=== PATIENT | male | born 1960 | race Caucasian/White ===

== ENCOUNTER 2016-05-04 22:15 | Emergency (ER) | payer OTHER ==
[~2016-05-04] VITALS: Ht 167.6 cm; Wt 84.1 kg
[~2016-05-04 22:15] MED LIST: FEXO1TAB7 PO; METH2.5T PO; OMEP-113 PO
[2016-05-04 22:22] VITALS: BP 190/109; PULSE 86; RESP 17; O2SAT 97
--- NOTE | 2016-05-04 22:25 | ED.REPORT ---
HPI-Abd Pain M 40 and Over Date of Service May 04, 2016 ED Provider: John Khan DO Pt is a 55 y.o. male with a hx of colectomy secondary to ulcerative colitis who presents to the ED c/o abdominal pain onset 2 days ago. He reports associated hematuria, nausea, and vomiting. PT was seen by Dr. Alexis today and dx with renal stones, he was prescribe Flomax but has been unable to take it due to nausea. Pt states that he has been unable to experience relief with Oxycodone and that he would like help with pain management. He denies fever, chills, and diarrhea. Nursing Notes Stated Complaint: POSS KIDNEY STONES Chief Complaint: Male Abdominal Pain Nursing Notes Reviewed: Yes Allergies: Coded Allergies: morphine (Verified Allergy, Intermediate, HIVES, 05/04/16) hydromorphone (Verified Allergy, Unknown, 05/04/16) Uncoded Allergies: VIT C (Allergy, Mild, RASH, 04/16/13) Scheduled Methotrexate Sodium (Methotrexate) 2.5 Mg Tablet Unknown Dose PO vonda 6 TABLETS ONCE WEEKLY Omeprazole Magnesium (Omeprazole) 20 Mg Capsule.dr 20 MG PO BID Scheduled PRN Fexofenadine/Pseudoephedrine ER (Nadine-D 24 Hour) 1 Each Tab.er.24h 1 EACH PO DAILY PRN PRN ENV. ALLERGIES General Time Seen by MD: 22:25 Chief Complaint Abdominal pain Hx Obtained From: Patient Arrived By: Walk-in Sudden in Onset?: Yes Onset Occurred: 2 days ago Symptom Duration: Since onset Location: : Diffuse Quality: Painful Severity: Current: Severe Recent Healthcare: Recent doctor visit Past Medical History Past Medical History ulcerative colitis J pouch Exzema Past Surgical History Total colectomy for ulcerative colitis ileoscopy Nasal surgery Smoking History Never Smoker Social History Alcohol Use: Denies alcohol use Drug Use: Denies drug use Review of Systems Constitutional: Denies: Chills, Fever GI: Reports: Abdominal pain, Nausea, Vomiting, Denies: Diarrhea Male: Reports Hematuria Complete sys rev & neg: except as marked. Physical Exam Initial Vital Signs Vital Signs (First) Date Time Temp Pulse Resp B/P Pulse Ox O2 Delivery O2 Flow Rate FiO2 05/04/16 22:22 86 17 190/109 97 Room Air Initial VS: Reviewed Head / Eyes: Atraumatic, Normocephalic Extremities: Vascular intact, Neuro intact Skin: Warm, Dry, No cyanosis Neurologic: Alert, Oriented, Nonfocal Psychiatric: Mood/affect normal, Behavior normal, Normal thought content General/Constitutional: Awake, Alert, No acute distress, Well appearing, Well developed, Well hydrated, Well nourished, Not toxic appearing Respiratory / Chest: Atraumatic, Breath sounds NL, Breath sounds = bilat, No respiratory distress, No rales, No rhonchi, No wheezing, No retractions, No stridor Cardiovascular: Heart rate NL, Regular rhythm, Heart sounds NL, Peripheral circulation NL Abdomen: Atraumatic, Soft, Non-tender, No guarding, No rebound, No distention Back: Atraumatic, Inspection NL Interpretation & Diagnostics Lab Results Interpretation Result Diagram: 05/04/16223905/04/162239 Test 05/04/16 22:40 White Blood Count 7.9th/mm3 (3.8-10.1) Red Blood Count 5.31mil/mm3 (4.40-5.80) Hemoglobin 15.1g/dL (13.8-17.2) Hematocrit 45.3% (41.0-50.0) Mean Corpuscular Volume 85.3fL (81-100) Mean Corpuscular Hemoglobin 28.4pg (27.0-35.0) Mean Corpuscular Hemoglobin Concent 33.3% (32.0-37.0) Red Cell Distribution Width 13.2% (12.3-15.4) Platelet Count 260bil/L (150-400) Neutrophils (%) (Auto) 70.4% (40-74) Lymphocytes (%) (Auto) 19.2% (14-46) Monocytes (%) (Auto) 7.1% (4-12) Eosinophils (%) (Auto) 2.1% (0-5) Basophils (%) (Auto) 0.9% (0-3) Sodium Level 139mEq/L (134-144) Potassium Level 4.5mEq/L (3.5-5.2) Chloride Level 101mEq/L (97-108) Carbon Dioxide Level 20mmol/L (18-29) Blood Urea Nitrogen 26mg/dL (6-24) Creatinine 1.22mg/dL (0.76-1.27) Estimat Glomerular Filtration Rate 66mL/min (>59) Glucose Level 180mg/dL (60-99) Calcium Level 9.8mg/dL (8.5-10.1) Total Bilirubin 0.5mg/dL (0.0-1.2) Aspartate Amino Transf (AST/SGOT) 25U/L (0-50) Alanine Aminotransferase (ALT/SGPT) 29U/L (0-44) Alkaline Phosphatase 66U/L (25-150) Total Protein 7.6g/dL (6.4-8.4) Albumin 4.4g/dL (3.4-5.0) CT Abd / Pelvis Interpretation CONCLUSION: 2mm obstructing stone in the distal left ureter with associated moderate left hydronephrosis Radiologist: Michael Zabala MD Re-Eval/Medical Decision Med Decision/Clinical Course CT shows a small distal ureteral stone with some hydronephrosis. . Mr. Basurto was medicated with fluids, IV fentanyl and Toradol and Flomax. His allergies preclude us from using other medications for pain. He had moderate relief of pain. The stone was traveling at least 90-95% of the distance and needs to go. I think it will pass spontaneously. I will place him on Flomax and have him take his prescribed oxycodone. Urology referral given. The third liter of fluid is infusing and Mr. Basurto just started to produce some urine. A urinalysis will be performed. I will add antibiotics if he shows any signs of infection otherwise he is going to receive a third liter of saline. He is going to have some IV Phenergan. If all is well he will be discharged home with close outpatient follow-up. Source of Hx: Old records Time of Eval: 00:14 Patient Status: Condition improved Re-Evaluation/Progress Note: Pt rechecked. Pt's pain has improved. Discussed CT imaging. Counseled Regarding: Diagnosis Discharge & Departure Shift Change Sign-Out Response to Therapy: Improved Primary Impression: Ureteral stone with hydronephrosis Additional Impression: Hydronephrosis Hydronephrosis type: with renal calculous obstruction Qualified Code: N13.2 - Hydronephrosis with renal and ureteral calculous obstruction Disposition: Home Vital Signs - All Vital Signs Date Time Temp Pulse Resp B/P Pulse Ox O2 Delivery O2 Flow Rate FiO2 05/04/16 23:20 66 14 167/94 94 Room Air 05/04/16 22:22 86 17 190/109 97 Room Air )( All Prior VS Reviewed: Yes Condition: Improved Patient Instructions: Renal Colic (ED) Additional Instructions: Your CT scan showed a 2mm obstructing stone in your left ureter. Follow-up with a urologist, call tomorrow to schedule an appointment. Return if you develop a fever, have increased pain, are unable to urinate, or have any new or worsening symptoms. Take your oxycodone as prescribed. Do not drive or drink alcohol or consume acetaminophen while taking the oxycodone. Do not drive tonight. Take Flomax once daily for 5 days. Strain your urine and if you are able to catch the stone and have it analyzed by the urologist. Return if any problems or any worsening symptoms. Referrals: Star Alexis MD (PCP) Meghann Kennedy MD Attestation Portions of this note were transcribed by Inez Rosenberg. I, Dr. Khan personally performed the history, physical exam and medical decision-making; I reviewed and confirmed the accuracy of the information in the transcribed note. Signed by : Basim Espitia, 05/05/16 and 0000. copies to: Star Alexis MD, Todd P DO May 04, 2016 22:25 INEZ ROSENBERG May 04, 2016 22:33
[2016-05-04] MEDS: 0.9% Sodium Chloride 1,000 ML IV SCH ×2 (22:41→23:38)
[2016-05-04 22:45] LABS: BASOPHILS % (AUTO) 0.9 % (0-3); EOSINOPHILS % (AUTO) 2.1 % (0-5); MONOCYTES % (AUTO) 7.1 % (4-12); Mean Corpuscular Hemoglobin 28.4 pg (27.0-35.0); Mean Corpuscular Volume 85.3 fL (81-100); NEUTROPHILS % (AUTO) 70.4 % (40-74); Platelet Count 260 bil/L (150-400)
[2016-05-04] MEDS: fentaNYL-PF 50 mCg/mL 2 mL Inj IVPUSH PRN ×3 (22:45→23:45)
[2016-05-04] MEDS: Ondansetron 2 mg/mL 2 mL Inj IVPUSH PRN (22:45)
[2016-05-04 23:20] VITALS: BP 167/94; PULSE 66; RESP 14; O2SAT 94
[2016-05-05] MEDS: fentaNYL-PF 50 mCg/mL 2 mL Inj IVPUSH PRN ×3 (00:07→01:40)
[2016-05-05] MEDS: Ondansetron 2 mg/mL 2 mL Inj IVPUSH PRN ×2 (00:34→01:13)
[2016-05-05] MEDS ORDERED: Alum-Mag Hydrox-Simeth 30 mL Suspension PO ONE (01:40)
[2016-05-05] MEDS: 0.9% Sodium Chloride 1,000 ML IV SCH ×2 (01:40→02:55)
[2016-05-05] MEDS ORDERED: 0.9% Sodium Chloride 1,000 ML IV ONE (02:50)
[2016-05-05] MEDS ORDERED: Promethazine Inj 12.5 MG in Dextrose 5%-Pha MIX 50 ML IV ONE (02:50)
[2016-05-05 03:44] LABS: APPEARANCE,URINE CLEAR (CLEAR,HAZY); COLOR,URINE YELLOW (YELLOW); OCCULT BLOOD,URINE MODERATE (NEGATIVE); UROBILINOGEN,URINE NORMAL (NORMAL)
[2016-05-05 04:17] VITALS: BP 173/90; PULSE 98; RESP 18; O2SAT 96
--- NOTE | 2016-05-05 08:28 | DRSVH ---
PROCEDURE: CT KUB ([id number]) INDICATIONS: left flank and llq pain, vomiting TECHNIQUE: Noncontrast 5 mm thick sections acquired from the diaphragms to the symphysis. 5 mm thick coronal an d sagittal reformats were then performed. For radiation dose reduction, the following was used: aut omated exposure control, adjustment of mA and/or kV according to patient size. COMPARISON: [facility], CT, ABD/PELVIS W/CON (PN), 08/02/2014, 0:34. FINDINGS: Image quality: Excellent. Lung bases: Lung bases are clear. Heart size is normal. Urinary system: Both kidneys are normal in size. There is a 23 mm diameter cyst within the superior pole right kidney which demonstrates mural calcification along its posterior aspect. There is a 20 mm diameter cyst within the left interpolar kidney medially, which also demonstrates mural calcificatio ns along its posterior aspect. There is a curvilinear nonobstructing 6 mm diameter calculus within th e right interpolar kidney posteriorly. There is a 2 mm diameter calculus within the right interpolar kidney anteriorly. No left nephrolithiasis. There is moderate left hydronephrosis and mild diffuse le ft ureteral dilatation. A 2 mm diameter left ureterovesical junction calculus is present. No right hy dronephrosis nor ureteral dilatation. No hydronephrosis nor perinephric fat stranding. Urinary bladd er is decompressed. Other solid organs: Liver is enlarged measuring 20 cm craniocaudal, and demonstrates diffusely decre ased density, indicating fatty infiltration. There is superimposed high density within the medial seg ment left hepatic lobe posteriorly, likely are presenting fatty sparing. Gallbladder is decompressed . Pancreas is normal in contours. No adrenal nodules. Peritoneum and bowel: A small hiatal hernia is present. Unenhanced bowel loops demonstrate normal wa ll thickness and caliber. No free fluid or air. Nodes and vessels: No retroperitoneal or mesenteric adenopathy by size criteria. Aorta and inferior vena cava are normal in caliber. Abdominal wall: No ventral hernias. Pelvis: No free pelvic fluid. No inguinal hernias or adenopathy. Bones: No suspicious bony lesions. No vertebral body compression fractures. IMPRESSION: 1. 2 mm diameter left ureterovesical junction calculus, associated with moderate left hydronephrosis and mild left ureteral dilatation. 2. Nonobstructing right nephrolithiasis. 3. Mural calcifications within the right interpolar and superior pole renal cysts. Findings may indic ate low-grade malignancy. Followup CT IVP in 6 months is recommended to document stability and to exc lude the less likely possibility of underlying neoplasm. 4. No change in small hiatal hernia. 5. Concordant with preliminary interpretation. Dictated by: Pepe Silver M.D. on 05/05/2016 at 8:20 Approved by: Pepe Silver M.D. on 05/05/2016 at 8:26
== END 2016-05-05 04:20 | disposition home or self-care (01) ==
LOC: SED 22:15
DX: N13.2 Hydronephrosis with renal and ureteral calculous obstruction (principal); I10 Essential (primary) hypertension; Z87.19 Personal history of other diseases of the digestive system; Z90.49 Acquired absence of other specified parts of digestive tract; Z88.5 Allergy status to narcotic agent
CPT/HCPCS: 36415; 74176; 80053; 81000; 85025; 96361; 96374; 96375; 96376; 99285; J2405; J2550; J3010; J7030

== ENCOUNTER 2016-05-05 16:40 | Emergency (ER) | payer OTHER ==
[~2016-05-05] VITALS: Ht 167.6 cm; Wt 84.1 kg
[2016-05-05 16:45] VITALS: BP 152/93; PULSE 88; RESP 16; O2SAT 97
== END 2016-05-05 17:56 | disposition left against medical advice (07) ==
LOC: SED 16:40
DX: Z53.21 Procedure and treatment not carried out due to patient leaving prior to being seen by health care provider (principal)

== ENCOUNTER 2016-05-06 11:08 | Emergency (ER) | payer OTHER ==
[~2016-05-06] VITALS: Ht 167.6 cm; Wt 84.0 kg
[2016-05-06 11:32] VITALS: BP 188/109; PULSE 86; RESP 20; O2SAT 99
--- NOTE | 2016-05-06 11:33 | ED.REPORT ---
HPI-Abd Pain M 40 and Over Date of Service May 06, 2016 ED Provider: Emelyn Lema MD Pt is a 55 year old male presenting to the ED complaining of severe 01/05 left flank pain onset 4 days ago. He was diagnosed with kidney stones in the ED yesterday. Associated symptoms include dysuria. He states that the pain medication which he was prescribed has not been effective. He has not yet seen a urologist. Nursing Notes Stated Complaint: ABDOMINAL PAIN Chief Complaint: Male Abdominal Pain Nursing Notes Reviewed: Yes Allergies: Coded Allergies: morphine (Verified Allergy, Intermediate, HIVES, 05/06/16) hydromorphone (Verified Allergy, Unknown, 05/06/16) Uncoded Allergies: VIT C (Allergy, Mild, RASH, 04/16/13) Scheduled Methotrexate Sodium (Methotrexate) 2.5 Mg Tablet Unknown Dose PO vonda 6 TABLETS ONCE WEEKLY Omeprazole Magnesium (Omeprazole) 20 Mg Capsule.dr 20 MG PO BID Scheduled PRN Fexofenadine/Pseudoephedrine ER (Nadine-D 24 Hour) 1 Each Tab.er.24h 1 EACH PO DAILY PRN PRN ENV. ALLERGIES General Time Seen by MD: 11:32 Chief Complaint Flank pain left Hx Obtained From: Patient Arrived By: Walk-in Sudden in Onset?: No Onset Occurred: 4 days ago Symptom Duration: Since onset Progression since Onset: Constant Location: : Flank left Quality: Painful Severity: Current: Severe (01/05) Severity: Maximum: Severe Recent Healthcare: No recent hospitalization, Recent doctor visit Similar Sx Previous: No Past Medical History Past Medical History ulcerative colitis J pouch Exzema Past Surgical History Total colectomy for ulcerative colitis ileoscopy Nasal surgery Smoking History Never Smoker Social History Alcohol Use: Denies alcohol use Drug Use: Denies drug use Ambulatory Status Independent Review of Systems Respiratory: Denies: Shortness of breath GI: Denies: Diarrhea, Vomiting Male: Reports Dysuria, Reports Flank pain (Left) Complete sys rev & neg: except as marked. Physical Exam Initial Vital Signs Vital Signs (First) Date Time Temp Pulse Resp B/P Pulse Ox O2 Delivery O2 Flow Rate FiO2 05/06/16 11:32 36.6 86 20 188/109 99 Room Air Initial VS: Reviewed, Vital signs abnormal Head / Eyes: Atraumatic, Normocephalic, PERRL ENT: Mucous membranes moist, Conjunctiva normal, No scleral icterus Extremities: Vascular intact, Neuro intact, No swelling, No tenderness Skin: Warm, Dry, No cyanosis Neurologic: Alert, Oriented, Nonfocal Psychiatric: Mood/affect normal, Behavior normal, Normal thought content General/Constitutional: Awake, Alert Distress / Hydration: Positive: Distress severe Respiratory / Chest: Breath sounds NL, Breath sounds = bilat, No respiratory distress, No rales, No rhonchi, No wheezing Cardiovascular: Heart rate NL, Regular rhythm, Heart sounds NL, Peripheral circulation NL Abdomen: No guarding, No rebound Tenderness/Guarding/Rebound: Positive: Tender suprapubic (Left) Back: Atraumatic, No CVA tenderness Interpretation & Diagnostics Lab Results Interpretation Result Diagram: 05/06/16 1130 05/06/16 1130 Test 05/06/16 11:30 05/06/16 15:35 White Blood Count 10.1th/mm3 (3.8-10.1) Red Blood Count 4.69mil/mm3 (4.40-5.80) Hemoglobin 13.5g/dL (13.8-17.2) Hematocrit 40.3% (41.0-50.0) Mean Corpuscular Volume 85.9fL (81-100) Mean Corpuscular Hemoglobin 28.8pg (27.0-35.0) Mean Corpuscular Hemoglobin Concent 33.5% (32.0-37.0) Red Cell Distribution Width 13.1% (12.3-15.4) Platelet Count 231bil/L (150-400) Neutrophils (%) (Auto) 80.7% (40-74) Lymphocytes (%) (Auto) 9.6% (14-46) Monocytes (%) (Auto) 8.2% (4-12) Eosinophils (%) (Auto) 0.9% (0-5) Basophils (%) (Auto) 0.4% (0-3) Sodium Level 140mEq/L (134-144) Potassium Level 4.1mEq/L (3.5-5.2) Chloride Level 103mEq/L (97-108) Carbon Dioxide Level 22mmol/L (18-29) Blood Urea Nitrogen 20mg/dL (6-24) Creatinine 1.14mg/dL (0.76-1.27) Estimat Glomerular Filtration Rate 71mL/min (>59) Glucose Level 144mg/dL (60-99) Calcium Level 8.9mg/dL (8.5-10.1) Magnesium Level 1.9mg/dL (1.6-2.6) Total Bilirubin 0.5mg/dL (0.0-1.2) Aspartate Amino Transf (AST/SGOT) 21U/L (0-50) Alanine Aminotransferase (ALT/SGPT) 24U/L (0-44) Alkaline Phosphatase 64U/L (25-150) Total Protein 6.9g/dL (6.4-8.4) Albumin 4.1g/dL (3.4-5.0) Lipase 24U/L (13-60) Hold Newell Top Tube Received (Received) Urine Color Yellow (YELLOW) Urine Appearance Clear (CLEAR,HAZY) Urine pH 5.5 (5.0-8.0) Urine Specific [place] 1.030 (1.003-1.035) Urine Protein Negativemg/dL (NEG,TRACE) Urine Glucose (UA) Negativemg/dL (NEGATIVE) Urine Ketones Negativemg/dL (NEGATIVE) Urine Occult Blood Small (NEGATIVE) Urine Nitrite Negative (NEGATIVE) Urine Bilirubin Negative (NEGATIVE) Urine Urobilinogen Normalmg/dL (NORMAL) Urine Leukocyte Esterase Negative (NEGATIVE) Urine RBC 11-50/hpf (0-2) Urine WBC 0-5/hpf (0-5) Urine Epithelial Cells Occasional/hpf (NONE-MOD) Urine Crystals None seen (NONE SEEN) Urine Bacteria Few/hpf (NONE-FEW) Urine Hyaline Casts None/lpf (NONE) Urine Granular Casts None seen (NONE SEEN) Urine Waxy Casts None seen (NONE SEEN) Urine Red Blood Cell Casts None seen (NONE SEEN) Urine White Blood Cell Casts None seen (NONE SEEN) Urine Mucus None seen (None Seen) Urine Trichomonas None seen (NONE SEEN) Urine Yeast None (NONE SEEN) Urinalysis Comment None Urine Culture Reflexed Not indicated CT Abd / Pelvis Interpretation CT KUB: IMPRESSION: Mild to moderately obstructive 1 mm calculus at the left ureterovesical junction. Mild left ureteral dilatation and mild to moderate left hydronephrosis. Additional smaller less than 5 mm renal calculi although some of these fall within the realm of noise artifact, in particular in the left kidney. Presumed right renal cysts although indeterminate in the absence of IV contrast. Dictated by: Rommel Ahn M.D. on 05/06/2016 at 12:23 Study type: Abdominal CT no contrast Interpretation / Wet Read by: Interpret - Radiologist Re-Eval/Medical Decision Med Decision/Clinical Course The patient has had recent kidney stones and has another. He is feeling much improved with symptomatic treatment. There is no sign of infection. He was encouraged to follow-up with the urologist. Time of Eval: 15:04 Patient Status: Condition improved Re-Evaluation/Progress Note: Pt pain starting to return. Discussed CT results. Time of Eval: 15:59 Patient Status: Condition improved Re-Evaluation/Progress Note: Discussed the pt's past medical history further. He sometimes only urinates once a week. Discussed plan for discharge. Pt understands and agrees with plan. Counseled Regarding: Diagnosis, Lab results, Need for follow-up, When/why to return to ED Discharge & Departure Primary Impression: Renal colic Disposition: Home Vital Signs - All Vital Signs Date Time Temp Pulse Resp B/P Pulse Ox O2 Delivery O2 Flow Rate FiO2 05/06/16 16:37 36.5 93 18 142/80 98 Room Air 05/06/16 14:50 86 20 157/73 97 Room Air 05/06/16 11:32 36.6 86 20 188/109 99 Room Air )( All Prior VS Reviewed: Yes Condition: Improved Patient Instructions: Renal Colic (ED) Additional Instructions: Follow up with a urologist on Sunday for an appointment next week. Drink lots of fluids. Seek care if you develop new or worsening symptoms. Referrals: Star Alexis MD (PCP) Meghann Kennedy MD Attestation Portions of this note were transcribed by Shirin Mays. I, Dr. Lema personally performed the history, physical exam and medical decision-making; I reviewed and confirmed the accuracy of the information in the transcribed note. Signed by : Basim Shipman, 05/06/2016 and 2107. copies to: Meghann Kennedy MD; Star Alexis MD, Jena M MD May 06, 2016 11:32 SHIRIN MAYS May 06, 2016 11:56
[2016-05-06] MEDS ORDERED: 0.9% Sodium Chloride 1,000 ML IV ONE ×2 (11:45→14:20)
[2016-05-06] MEDS ORDERED: Ketorolac 15 mg/mL Inj IM ONE (11:45)
[2016-05-06] MEDS ORDERED: fentaNYL-PF 50 mCg/mL 2 mL Inj IVPUSH ONE ×3 (11:45→16:10)
[2016-05-06 11:47] LABS: BASOPHILS % (AUTO) 0.4 % (0-3); EOSINOPHILS % (AUTO) 0.9 % (0-5); MONOCYTES % (AUTO) 8.2 % (4-12); Mean Corpuscular Hemoglobin 28.8 pg (27.0-35.0); Mean Corpuscular Volume 85.9 fL (81-100); NEUTROPHILS % (AUTO) 80.7 % (40-74); Platelet Count 231 bil/L (150-400)
[2016-05-06 12:14] LABS: Magnesium 1.9 mg/dL (1.6-2.6)
--- NOTE | 2016-05-06 12:37 | DRSVH ---
PROCEDURE: CT KUB ([id number]) INDICATIONS: passed stone still with pain TECHNIQUE: Noncontrast 5 mm thick sections acquired from the diaphragms to the symphysis. 5 mm thick coronal an d sagittal reformats were then performed. For radiation dose reduction, the following was used: aut omated exposure control, adjustment of mA and/or kV according to patient size. COMPARISON: [facility], CT, CT KUB, 05/04/2016, 23:15. FINDINGS: Image quality: Excellent. Lung bases: Lung bases are clear. Heart size is normal. Urinary system: Asymmetric enlargement of the left kidney is present, and there is mild left perinep hric stranding. Mild to moderate left hydronephrosis. No evidence of urinary obstruction on the right . Bilateral punctate and faint less than 5 mm renal calculi are seen, for example image 44 series 2 t he right kidney, and image 38 series 2 in the left kidney. The left kidney, the findings are faint en ough to be within a round of noise artifact. There is left periureteral stranding and diffuse uretera l dilatation related to a 1 mm calculus seen at the left ureterovesical junction image 80 series 2. B ladder otherwise unremarkable. Probable right renal cysts, however indeterminate in the absence of IV contrast. Other solid organs: Subcentimeter hypodensity in the dome of the liver on image 18 presumably small c ysts although indeterminate otherwise liver and spleen are normal in size. Gallbladder contracted ot herwise unremarkable. Pancreas is normal in contours. No adrenal nodules. Peritoneum and bowel: Unenhanced bowel loops demonstrate normal wall thickness and caliber. Postsurg ical changes with multiple bowel anastomoses. No free fluid or air. Small hiatal hernia. Nodes and vessels: No retroperitoneal or mesenteric adenopathy by size criteria. Aorta and inferior vena cava are normal in caliber. Abdominal wall: Tiny fat containing umbilical hernia. Pelvis: No free pelvic fluid. No inguinal hernias or adenopathy. Bones: No suspicious bony lesions. No vertebral body compression fractures. IMPRESSION: Mild to moderately obstructive 1 mm calculus at the left ureterovesical junction. Mild left ureteral dilatation and mild to moderate left hydronephrosis. Additional smaller less than 5 mm renal calculi although some of these fall within the realm of noise artifact, in particular in the left kidney. Presumed right renal cysts although indeterminate in the absence of IV contrast. Dictated by: Rommel Ahn M.D. on 05/06/2016 at 12:23 Approved by: Rommel Ahn M.D. on 05/06/2016 at 12:34
[2016-05-06 14:50] VITALS: BP 157/73; PULSE 86; RESP 20; O2SAT 97
[2016-05-06 16:28] LABS: APPEARANCE,URINE CLEAR (CLEAR,HAZY); COLOR,URINE YELLOW (YELLOW); OCCULT BLOOD,URINE SMALL (NEGATIVE); PH,URINE 5.5 (5.0-8.0); UROBILINOGEN,URINE NORMAL (NORMAL)
[2016-05-06 16:37] VITALS: BP 142/80; PULSE 93; RESP 18; O2SAT 98
== END 2016-05-06 16:38 | disposition home or self-care (01) ==
LOC: SED 11:08
DX: N23 Unspecified renal colic (principal); Z88.5 Allergy status to narcotic agent
CPT/HCPCS: 36415; 74176; 80053; 81000; 83690; 83735; 85025; 96361; 96372; 96374; 96376; 99285; J1885; J3010; J7030